=== PATIENT | female | born 1995 | race Caucasian/White ===

== ENCOUNTER 2022-08-27 10:49 | Outpatient (CLI) | payer OTHER ==
[2022-08-27 11:31] LABS: THYROID STIMULATING HORMONE 2.49 uIU/mL (0.34-5.60)
[2022-08-27 11:33] LABS: FREE T4 (FREE THYROXINE) 0.58 ng/dL (0.58-1.64)
[2022-08-27 13:07] LABS: ESTIMATED AVERAGE GLUCOSE 105 mg/dL (70-100); HEMOGLOBIN A1c% 5.3 % (4.27-6.07)
== END 2022-08-27 10:50 | disposition home or self-care (01) ==
LOC: LAB 10:49
PROVIDERS: ATTEND Nurse Practitioner
DX: E07.9 Disorder of thyroid, unspecified (principal); Z83.3 Family history of diabetes mellitus
CPT/HCPCS: 36415; 83036; 84439; 84443

== ENCOUNTER 2023-01-23 11:30 | Emergency (ER) | payer OTHER ==
--- NOTE | 2023-01-23 11:39 | ED Physician Documentation ---
History of Present Illness - Stated complaint Stated Complaint: DOG BITE - Additonal information Additional information: This is a 27-year-old female who presents with a left index finger dog bite. She was bit by a friend's dog. Dog is up-to-date on vaccines. No other injuries, she is able to flex and extend the finger, there are multiple small punctures and abrasions of the left index finger. Patient believes her last tetanus was in the last 7 years but unsure if it was in the last 5 years. PD PAST MEDICAL HISTORY - Past Medical History Past Medical History: No - Present Medications Home Medications: Ambulatory Orders Medication Instructions Recorded Confirmed Amox/Clav 875/125 [Augmentin] 1 each PO Q12H #10 tablet 01/23/23 Mupirocin 2% Oint [Bactroban 2% 1 applic TOP BID #22 gm 01/23/23 Oint] Ondansetron Odt [Zofran] 4 mg TL Q6H PRN #10 tablet 01/23/23 - Allergies Allergies/Adverse Reactions: Allergies Allergy/AdvReac Type Severity Reaction Status Date / Time sulfamethoxazole AdvReac Emesis Verified 01/23/23 11:40 [From Bactrim] trimethoprim [From Bactrim] AdvReac Emesis Verified 01/23/23 11:40 PD ED PE NORMAL - Vitals Vital signs reviewed: Yes - General General: Alert and oriented X 3, No acute distress, Well developed/nourished - HEENT HEENT: Atraumatic, Moist mucous membranes - Derm Derm: Normal color, Warm and dry, Other (Several small punctures and scratches on the left index finger, volar surface. Nail is intact, patient can flex and extend, no tendon injury.) - Extremities Extremities: No deformity, No tenderness to palpate, Normal ROM s pain Results - Vitals Vitals: Vital Signs - 24 hr 01/23/23 11:37 Temperature 36.8 C Heart Rate 86 Respiratory 16 Rate Blood Pressure 147/63 H O2 Saturation 98 Oxygen O2 Source Room air PD Medical Decision Making - ED course Complexity details: d/w patient ED course: Patient presented with a left index finger dog bite. Bite is fairly small who is a puncture of the tip of the left index finger and some abrasions along the volar surface of the finger. We have soaked and cleaned the wound and applied a dressing. Patient advised to continue good wound care at home with gentle soap and water a couple times a day and I will also give mupirocin ointment. I have prescribed Augmentin for infection prophylaxis given the location of the injury. Patient somewhat reluctant to take medication given history of nausea and vomiting with this medication but is willing to do so with antiemetics prescribed, I did offer her alternative regimen which should be a 2 drug regimen however also with the potential for nausea and vomiting and increased pill burden. Patient therefore has elected to utilize the Augmentin with an antiemetic As she does not have a true allergy to this medication. I discussed return precautions if new or worsening symptoms such as fever, increased redness, swelling, difficulty moving the finger or other new concerns. Departure - Departure Disposition: 01 Home, Self Care Clinical Impression: Animal bite with open wound Condition: Good Instructions: Bites Scratches Animal Prescriptions: Amox/Clav 875/125 [Augmentin] 1 each PO Q12H #10 tablet Mupirocin 2% Oint [Bactroban 2% Oint] 1 applic TOP BID #22 gm Ondansetron Odt [Zofran] 4 mg TL Q6H PRN #10 tablet PRN Reason: Nausea / Vomiting Comments: You sustained a dog bite to the index finger. There is nothing that requires suture closure but it does need good wound care at home. Please clean with gentle soap and water but otherwise keep dry. Though the wound is small, I have prescribed you antibiotic prophylaxis for the dog bite given its location. As we discussed, you can hold off on starting this medication unless there is increasing redness, swelling, purulent drainage or other signs of infection. We did update your tetanus today as it was not certain if you had a update in the last 5 years.
[2023-01-23 11:40] VITALS: BP 147/63
[2023-01-23] MEDS ORDERED: TETANUS/DIPHTHERIA/PERTUSSIS 0.5 ML SYRINGE IM ONE (11:49)
== END 2023-01-23 12:03 | disposition home or self-care (01) ==
LOC: ED 11:30
DX: S61.251A Open bite of left index finger without damage to nail, initial encounter (principal); W54.0XXA Bitten by dog, initial encounter; Z23 Encounter for immunization
CPT/HCPCS: 90471; 99283

== ENCOUNTER 2023-09-25 04:36 | Emergency (ER) | payer OTHER ==
[2023-09-25] MEDS ORDERED: SODIUM CHLORIDE 0.9% 1,000 ML IV STA ×2 (05:09→07:18)
[2023-09-25] MEDS ORDERED: ONDANSETRON 4 MG/2 ML VIAL IVP STA ×2 (05:14→06:27)
[2023-09-25 05:16] LABS: BASOPHILS % (AUTO) 0.3 %; EOSINOPHILS # (AUTO) 0.1 10^3/uL (0.0-0.7); EOSINOPHILS % (AUTO) 0.5 %; HCT - HEMATOCRIT 44.4 % (37.0-47.0); HGB - HEMOGLOBIN 14.7 g/dL (12.0-16.0); LYMPHOCYTES # (AUTO) 4.6 10^3/uL (1.5-3.5); LYMPHOCYTES % (AUTO) 36.8 %; MEAN CORPUSCULAR HEMOGLOBIN 29.2 pg (27.0-31.0); MEAN CORPUSCULAR HGB CONC 33.1 g/dL (32.0-36.0); MEAN CORPUSCULAR VOLUME 88.1 fL (81.0-99.0); MEAN PLATELET VOLUME 9.7 fL (7.9-10.8); NEUTROPHILS # (AUTO) 6.8 10^3/uL (1.5-6.6); NEUTROPHILS % (AUTO) 54.2 %; PLT - PLATELET COUNT 457 10^3/uL (130-450); RED BLOOD COUNT 5.04 10^6/uL (4.20-5.40); WHITE BLOOD COUNT 12.6 x10^3/uL (4.8-10.8)
--- NOTE | 2023-09-25 05:31 | ED Physician Documentation ---
PD HPI NVD - Stated complaint Stated Complaint: VOMITING BLOOD - Chief complaint Chief Complaint: Abd Pain - History obtained from History obtained from: Patient - Additonal information Additional information: HPI from patient. Patient complains of 6 days of nausea, vomiting, and diarrhea. This was preceded by several days of chills, low-grade fevers, generalized bodyaches (these symptoms have resolved). Patient says her vomitus has been bloody at times, even with visible blood clots, and, at other times, it is coffee-ground in appearance. She has no history of previous GI bleed. She says she does get heartburn from time to time. She does not take any blood-thinning medications. Review of Systems Cardiac: reports: Reviewed and negative Respiratory: reports: Reviewed and negative GI: reports: Abdominal Pain (epigastric), Nausea, Vomiting, Diarrhea, Hematemesis. denies: Bloody / black stool PD PAST MEDICAL HISTORY - Past Medical History Past Medical History: Yes GI: GERD, Other : Other Psych: Depression, Anxiety Other Past Medical History: IBS; Kidney Infection - Past Surgical History Past Surgical History: Yes General: Colonoscopy, EGD HEENT: Other - Present Medications Home Medications: Ambulatory Orders Medication Instructions Recorded Confirmed Escitalopram Oxalate 20 mg PO DAILY 09/25/23 09/25/23 Escitalopram [Lexapro] 10 mg PO DAILY 09/25/23 09/25/23 Ondansetron Odt [Zofran] 4 mg TL Q6H PRN #10 tablet 09/25/23 Pantoprazole [Protonix] 40 mg PO DAILY 30 Days #30 tablet 09/25/23 Sucralfate [Carafate] 1 gm PO ACHS 5 Days #200 ml 09/25/23 - Allergies Allergies/Adverse Reactions: Allergies Allergy/AdvReac Type Severity Reaction Status Date / Time sulfamethoxazole AdvReac Emesis Verified 09/25/23 04:52 [From Bactrim] trimethoprim [From Bactrim] AdvReac Emesis Verified 09/25/23 04:52 - Social History Does the pt smoke?: No Smoking Status: Never smoker Does the pt drink ETOH?: Yes ETOH Use: Liquor Does the pt have substance abuse?: Yes Substance Use and Type: Marijuana - Immunizations Immunizations are current?: Yes - POLST Patient has POLST: No PD ED PE NORMAL - Vitals Vital signs reviewed: Yes - General General: Alert and oriented X 3, No acute distress, Well developed/nourished - Cardiac Cardiac: RRR, No murmur - Respiratory Respiratory: No respiratory distress, Clear bilaterally - Abdomen Abdomen: Soft, Non tender, Non distended - Derm Derm: Normal color, Warm and dry Results - Vitals Vitals: Oxygen O2 Source Room air - Labs Labs: Laboratory Tests 09/25/23 09/25/23 09/25/23 05:02 05:02 06:50 WBC 12.6 H RBC 5.04 Hgb 14.7 Hct 44.4 MCV 88.1 MCH 29.2 MCHC 33.1 RDW 12.0 Plt Count 457 H MPV 9.7 Neut # (Auto) 6.8 H Lymph # (Auto) 4.6 H Kingsbury # (Auto) 1.0 Eos # (Auto) 0.1 Baso # (Auto) 0.0 Absolute Nucleated RBC 0.00 Nucleated RBC % 0.0 Sodium 141 Potassium 3.6 Chloride 103 Carbon Dioxide 27 Anion Gap 11.0 BUN 12 Creatinine 1.1 Estimated GFR (MDRD) 60 L Glucose 135 H Calcium 10.3 Total Bilirubin 0.4 AST 29 ALT 40 Alkaline Phosphatase 71 Total Protein 8.3 Albumin 4.7 Globulin 3.6 Albumin/Globulin Ratio 1.3 Lipase 22 Urine Color DARK YELLOW Urine Clarity CLEAR Urine pH 6.0 Ur Specific Bowie >=1.030 H Urine Protein 30 H Urine Glucose (UA) NEGATIVE Urine Ketones 15 H Urine Occult Blood TRACE-INTA Urine Nitrite NEGATIVE Urine Bilirubin NEGATIVE Urine Urobilinogen 0.2 (NORMAL) Ur Leukocyte Esterase NEGATIVE Urine RBC 0-5 Urine WBC 0-3 Ur Squamous Epith Cells FEW Squamous Urine Crystals 0-2 Calcium Oxalate Amorphous Sediment Rare Urine Bacteria Few Ur Microscopic Review INDICATED Urine Culture Comments NOT INDICATED Urine HCG, Qual 09/25/23 06:50 WBC RBC Hgb Hct MCV MCH MCHC RDW Plt Count MPV Neut # (Auto) Lymph # (Auto) Kingsbury # (Auto) Eos # (Auto) Baso # (Auto) Absolute Nucleated RBC Nucleated RBC % Sodium Potassium Chloride Carbon Dioxide Anion Gap BUN Creatinine Estimated GFR (MDRD) Glucose Calcium Total Bilirubin AST ALT Alkaline Phosphatase Total Protein Albumin Globulin Albumin/Globulin Ratio Lipase Urine Color Urine Clarity Urine pH Ur Specific Bowie Urine Protein Urine Glucose (UA) Urine Ketones Urine Occult Blood Urine Nitrite Urine Bilirubin Urine Urobilinogen Ur Leukocyte Esterase Urine RBC Urine WBC Ur Squamous Epith Cells Urine Crystals Amorphous Sediment Urine Bacteria Ur Microscopic Review Urine Culture Comments Urine HCG, Qual NEGATIVE PD Medical Decision Making - ED course Complexity details: reviewed results, re-evaluated patient, considered differential, d/w patient ED course: No concerning or diagnostic findings on blood tests. Mild leukocytosis noted (WBC 12.6), mild thrombocytosis (456). Hemoglobin and hematocrit are normal. There are also no concerning abnormalities on ER abdominal panel. Mild hyperglycemia noted (136). Patient is given 1 L normal saline IV as well as 4 mg IV Zofran. She reports significant improvement regarding the nausea after these interventions.On r eevaluation, I discussed test results with patient. She is having significant eructation during this discussion and mild nausea. Thus, the plan is as follows: I am ordering a second liter of normal saline IV, another 4 mg IV Zofran, as well as 30 mL of Maalox to be mixed with 10 mL of viscous lidocaine for p.o. intake. The lidocaine and Maalox are being given due to mild epigastric discomfort. Overall, clinical impression is likely hemorrhagic gastritis, possibly of viral origin. Bleeding PUD, aurora-falk tear(s) also considered. Care of the patient is turned over to the oncoming ED physician (Dr. Oquendo) at the end of my shift with the plan to reevaluate her after she has had the second liter of fluid as well as the Zofran, Maalox, and viscous lidocaine. Departure - Departure Disposition: 01 Home, Self Care Clinical Impression: Nausea and vomiting, Acute gastritis with bleeding Condition: Stable Instructions: ED Nausea Vomiting Prescriptions: Sucralfate [Carafate] 1 gm PO ACHS 5 Days #200 ml Pantoprazole [Protonix] 40 mg PO DAILY 30 Days #30 tablet Ondansetron Odt [Zofran] 4 mg TL Q6H PRN #10 tablet PRN Reason: Nausea / Vomiting Comments: Your stomach will be easily upset and not tolerate large amounts for a few days. Start with small frequent fluids of water and electrolyte solutions and juice. Minter food initially and simple such as crackers rice Posta's. Ondansetron every 4-6 hours if needed for nausea. I would suggest coating your stomach several times daily for the next several days. I prescribed sacral fate for this. You can also add in antacid such as Maalox or Mylanta. You will likely have some dark stools for the next day or 2 as the blood that you vomited would not be completely emptied from the stomach and some will go down the other route. The dark stools should phased out over a day or 2. I would avoid Pepto-Bismol as a medication as this will cause dark stool and will be hard to tell if you have ongoing bleeding per se. I would also add an acid reducing medicine. I prescribed pantoprazole to use daily for the next month. I would anticipate improvement over the next few days and resolution by 3 to 5 days with your stomach feeling mostly better. Recheck if not better in that timeframe and return if worse despite medicines. I sent your prescriptions to the [facility] pharmacy. Forms: PCP List, Activity restrictions Discharge Date/Time: 09/25/23 09:25
[2023-09-25 05:45] LABS: ALBUMIN 4.7 g/dL (3.2-5.5); ALBUMIN/GLOBULIN RATIO 1.3 (1.0-2.2); BILIRUBIN,TOTAL 0.4 mg/dL (0.2-1.0); CALCIUM 10.3 mg/dL (8.5-10.3); CREATININE 1.1 mg/dL (0.6-1.3); POTASSIUM 3.6 mmol/L (3.5-4.5); TOTAL PROTEIN 8.3 g/dL (6.4-8.9)
[2023-09-25] MEDS ORDERED: LIDOCAINE VISCOUS 2% 15 ML UDC MM STA (06:27)
[2023-09-25] MEDS ORDERED: MAG HYDROX/AL HYDROX/SIMETH 30 ML UDC PO STA (06:27)
[2023-09-25] MEDS ORDERED: PANTOPRAZOLE 40 MG VIAL IVP STA (06:28)
[2023-09-25 06:59] LABS: GLUCOSE, URINE (UA) NEGATIVE (NEGATIVE); KETONES,URINE (UA) 15 mg/dL (NEGATIVE); LEUKOCYTE ESTERASE, URINE NEGATIVE (NEGATIVE); NITRITE,URINE NEGATIVE (NEGATIVE); OCCULT BLOOD,URINE TRACE-INTA (NEGATIVE); PROTEIN,URINE 30 mg/dL (NEGATIVE); UROBILINOGEN,URINE 0.2 (NORMAL) E.U./dL (NORMAL)
[2023-09-25 07:07] LABS: BILIRUBIN,URINE NEGATIVE (NEGATIVE); CLARITY,URINE CLEAR (CLEAR); ICTOTEST,URINE NEGATIVE
[2023-09-25 07:15] LABS: BACTERIA,URINE Few /HPF (None Seen); RBC,URINE 0-5 /HPF (0-5); SQUAMOUS EPITHELIAL CELL,UR FEW Squamous (<= Few); WBC,URINE 0-3 /HPF (0-5)
[2023-09-25 07:16] LABS: AMORPHOUS SEDIMENT,UR Rare /LPF; CRYSTALS,URINE 0-2 Calcium Oxalate /LPF
[2023-09-25 07:30] LABS: HCG UR QUAL NEGATIVE
[2023-09-25] MEDS ORDERED: DROPERIDOL 5 MG/2 ML VIAL IVP STA (08:12)
[2023-09-25] MEDS ORDERED: diphenhydrAMINE INJ 50 MG/ML VIAL IVP STA (08:40)
[2023-09-25 08:41] VITALS: BP 137/92; O2SAT 100
--- NOTE | 2023-09-25 08:45 | ED Physician Documentation ---
ED Addendum - Addendum Addendum: 09/25/23 08:44 The patient was less nauseous after a second dose of Zofran. P.o. challenge however did create some nausea and emesis of some of the water. No pain per se. Given droperidol IV for nausea instead. She did experience some anxiety after that but was less nauseous. Offered Benadryl but the akathisia had improved prior to that. She is feeling improved enough for heading home. Will give instructions for small frequent fluids and bland food initially at small amounts. Presume she has some viral gastroenteritis most likely initially followed by a gastritis and irritation. The vomiting of blood occurred after multiple emeses. She does not have any chest pain or belly pain or tenderness so I doubt a Lee. More likely Rukhsana-Carrillo tear type of process. She does have some discomfort in the lower esophageal to antral area of the stomach that had improved with GI cocktail given earlier. Will have her home and rest. Work note for a day or 2. Ondansetron for nausea. I would suggest some sacral fate for several days as well as pantoprazole for a few weeks. I will send these prescriptions to her pharmacy. She is to return if worsening or not improved well despite the medications. Disposition the patient discharged home in stable condition. Diagnoses: 1. Nausea and vomiting 2. Acute gastritis subsequent to #1 3. Stomach bleeding, possible Rukhsana-Carrillo tear. 09/25/23 09:07
== END 2023-09-25 09:25 | disposition home or self-care (01) ==
LOC: ED 04:36
DX: K29.01 Acute gastritis with bleeding (principal)
CPT/HCPCS: 36415; 80053; 81001; 81025; 83690; 85025; 96361; 96374; 96375; 96376; 99284; A9270; 81003; 87086